=== PATIENT | male | born 1990 | race Caucasian/White ===

== ENCOUNTER 2025-01-20 03:26 | Emergency (ER) | payer OTHER, SELFPAY ==
[2025-01-20 03:27] VITALS: BP 147/73; PULSE 102; RESP 19; TEMP 37.2; BMI 25.2
[2025-01-20 03:31] VITALS: BP 150/88; PULSE 102; RESP 20; TEMP 37.2; O2SAT 93
--- NOTE | 2025-01-20 03:53 | RAD_ITS ---
PROCEDURE: CHEST 1 VIEW (PORTABLE) 01/20/2025 REASON FOR EXAM: COUGH TECHNIQUE: Frontal view of the chest. COMPARISON: None available FINDINGS: The lungs appear clear. Pulmonary vascularity appears within limits. No pleural effusion. The cardiac and mediastinal contours appear within limits. The visualized osseous structures appear within limits. RAD/Chest 1 View (Portable) IMPRESSION: No evidence of acute disease. Reading Location: [id number]
[2025-01-20 04:11] LABS: Absolute Lymphocyte Count 0.84 X10^3/uL (0.83-4.51); Absolute Neutrophil Count 7.5 X10^3/uL (2.0-7.7); Basophil# 0.05 X10^3/uL; Basophil% 0.6 % (0-1); Eosinophil# 0.01 X10^3/uL; Eosinophils% 0.1 % (0-5); Hematocrit 41.2 % (40-54); Hemoglobin 15.1 g/dL (13.0-16.5); Lymphocyte # 0.84 X10^3/ul (0.83-4.51); Lymphocyte % 9.5 % (19-41); Mean Corp Hgb Conc 36.7 g/dL (32-36); Mean Corpuscular Hgb 28.4 pg (27.0-32.0); Mean Corpuscular Volume 77.4 fL (80-94); Mean Platelet Vol. 9.3 fl (6.2-12.0); Monocyte# 0.48 X10^3/uL; Monocyte% 5.4 % (0-10); NRBC Flagged by Analyzer 0 % (0-5); Neutrophil # 7.45 X10^3/uL (2.7-7.7); Neutrophil % 83.8 % (47-70); POSITIVE MORPHOLOGY YES; Platelet Count 172 K/mm3 (150-450); RBC Distribution Width CV 12.4 % (11.6-14.6); RBC Distribution Width SD 34.8 fl (35.1-43.9); Red Blood Count 5.32 M/mm3 (4.6-6.2); White Blood Count 8.9 K/mm3 (4.4-11.0)
[2025-01-20 04:13] LABS: Differential Indicated SCAN CRITERIA MET
[2025-01-20] MEDS: 0.9% Normal Saline (1000mL) 1,000 ML 999 ML IV (04:14)
[2025-01-20 04:30] VITALS: BP 121/76; PULSE 86; RESP 20; TEMP 37.2; O2SAT 95
[2025-01-20 04:47] LABS: Magnesium 2.2 mg/dL (1.5-2.2)
[2025-01-20 04:55] LABS: Atypical Lymphocyte 1+ %
[2025-01-20 04:56] LABS: Platelet Estimate ADEQUATE (ADEQ); Red Cell Morphology NORM C+C NORMAL (NORM C&C)
[2025-01-20 05:00] VITALS: BP 141/80; PULSE 86; RESP 18; TEMP 37.1; O2SAT 93
[2025-01-20 05:08] LABS: AST(SGOT) 134 U/L (<=37); Alanine Aminotransfer ALT/SGPT 238 U/L (<=46); Alkaline Phosphatase 125 U/L (40-129); Anion Gap 13 (5-15); BUN 14 mg/dL (4-19); BUN/Creat Ratio 12.3 RATIO (10-20); Bilirubin, Direct 0.42 mg/dL (0.00-0.30); Calcium,Total 8.6 mg/dL (7.6-11.0); Carbon Dioxide 24.7 mmol/L (21.0-32.0); Chloride 93 mmol/L (98-108); Creatinine, Serum 1.11 mg/dL (0.70-1.20); EST Glomerular Filtration Rate 90 (>60); Estimated Creatinine Clearance 89.32 ml/min (50-250); Glucose 123 mg/dL (70-99); Potassium 3.6 mmol/L (3.3-5.1); Sodium Level 131 mmol/L (133-145); Total Bilirubin 0.86 mg/dL (0.00-1.30)
--- NOTE | 2025-01-20 05:28 | EX.ED.DYSGE1 ---
HPI History of Present Illness Chief Complaint: Rash Informant: patient and family Narrative Narrative: Patient is a 34-year-old male who reports a past medical history of Lyme's disease otherwise states he is healthy and takes no medication. He reports that there is been a measles outbreak in his community. He reports his son initially had the infection and then began to spread it throughout the house. Patient states that he has had symptoms of fever muscle aches rash cough and sore throat for approximately 1 week. He states that he is coughing at night keeping him from sleeping and he also feels a burning sensation when he swallows. He states that he believes his cough and shortness of breath are worsening despite the timeframe of the infection and therefore comes in for evaluation He does state that since the measles outbreak has been running through his community that the community is already in contact with the health department for continued monitoring [facility] Medical History (Updated 01/20/25 @ 06:[address] Aramis Downing, DO) Hx of Lyme disease Home Medications ?Medication ?Instructions ?Recorded ?Last Taken ?Type aluminum-mag hydroxide-simethicone 5 ml PO 4X/DAY PRN 01/20/25 Unknown Rx 200 mg-200 mg-20 mg/5 mL oral susp dyspepsia/indigestion #3,000 mL (Maalox Advanced) benzonatate 200 mg capsule 200 mg PO TID PRN cough #30 caps 01/20/25 Unknown Rx Allergy/AdvReac Type Severity Reaction Status Date / Time No Known Allergies Allergy Verified 01/20/25 03:27 Social History Smoking Status: Never smoker [facility] ED Constitutional Constitutional ED: Reports chills and fever(s) Eyes Eyes: Denies change in vision ENT ENT ED: Reports rhinorrhea and sore throat Cardiovascular Cardiovascular: Denies chest pain Respiratory/Chest Respiratory/Chest: Reports cough and dyspnea Gastrointestinal Gastrointestinal: Reports nausea and other Details: Positive dyspepsia ; Denies abdominal pain, diarrhea or vomiting Genitourinary Genitourinary ED: Denies dysuria Musculoskeletal Musculoskeletal: Reports myalgias Integumentary Reports rash Neurologic Neurologic: Denies headache(s) Hematologic/Lymphatic Hematologic/Lymphatic: Denies easy bleeding or easy bruising Allergic/Immunologic Allergic/Immunologic ED: Denies mouth swelling or tongue swelling EXAM Physical Exam Const Vital Signs: 01/20/25 03:27 01/20/25 03:31 01/20/25 03:31 Temperature 98.9 F 98.9 F Temperature Source Oral Oral Pulse Rate 102 H 102 H Respiratory Rate 19 H 20 H Respiratory Effort Non-Labored Short of Breath Respiratory Pattern Tachypnea Blood Pressure 147/73 H 150/88 H Blood Pressure Mean 97 108 Pulse Ox 93 Oxygen Delivery Method Room Air Room Air 01/20/25 04:30 01/20/25 05:00 01/20/25 05:38 Temperature 98.9 F 98.7 F 98.9 F Temperature Source Oral Oral Pulse Rate 86 86 86 Respiratory Rate 20 H 18 18 Respiratory Effort Respiratory Pattern Blood Pressure 121/76 H 141/80 H 116/98 H Blood Pressure Mean 91 100 104 Pulse Ox 95 93 95 Oxygen Delivery Method Room Air Room Air 01/20/25 06:00 Temperature Temperature Source Pulse Rate 90 Respiratory Rate 18 Respiratory Effort Respiratory Pattern Blood Pressure 122/75 H Blood Pressure Mean 90 Pulse Ox 94 Oxygen Delivery Method Room Air Positive well nourished and well developed General Appearance ED: well developed HEENT Reports dry mucous membranes HEENT Narrative: Normocephalic atraumatic No tongue or lip swelling; no airway edema or compromise Mucous membranes are dry and tacky There are white discolorations across the bilateral cheeks and posterior pharynx consistent with [place] spots; no abscess formation noted Mouth ED: Yes dry mucous membranes Mouth: dry mucous membranes Eyes PERRL and EOMs intact bilaterally Eyes Narrative: Bilateral scleral injection is noted General Eye ED: Negative for scleral icterus Neck supple and no JVD Neck Narrative: No nuchal rigidity or meningeal signs Resp normal respiratory effort and clear to auscultation bilaterally Resp Narrative: Breath sounds are slightly diminished throughout but overall clear to auscultation without nasal flaring retractions stridor or accessory muscle use Cardio regular rhythm Rate: tachycardic and other Other Details: Slightly tachycardic rate with regular rhythm No murmurs rubs or gallop Radial and carotid pulses equal and symmetric GI non-tender, non-distended and no masses GI Narrative: Soft nontender nondistended with hyperactive bowel sounds No voluntary guarding or rigidity or pulsatile mass Auscultation: hyperactive bowel sounds Palpation: soft Extremity normal to inspection Extremity Narrative: No asymmetric edema no pitting edema negative Homans' sign bilaterally Neuro oriented x3, CN's II-XII intact bilaterally and no sensory deficits noted Sensorium / Orientation: alert Motor Exam: strength 5/5 throughout Psych Mood & Affect: anxious Skin No skin turgor normal Skin Narrative: Skin turgor is increased consistent with dehydration There is an erythematous rash extending from the head/face down into the chest abdomen and back and extending into the arms and upper legs without palm or sole involvement also consistent with history of measles No desquamation or sloughing of skin MDM MDM MDM Narrative Medical decision making narrative: Patient arrived to the ER slightly tachycardic but otherwise in no acute distress satting in the mid 90s on room air. He reports a known exposure to measles and is currently following with the health department. However with him reporting worsening cough and shortness of breath there is concern for superimposed pneumonia or secondary bacterial infection leading to worsening of symptoms. Therefore chest x-ray was obtained as well as basic labs. Chest x-ray revealed no acute infiltrate pneumothorax or pleural effusion. Lab work showed no leukocytosis or left shift. It did show lymphocytosis and relative thrombocytopenia consistent with measles. It also displayed mild elevation to the transaminase values consistent with measles infection. The patient however did not have signs of acute kidney injury or clinically significant electrolyte abnormality. After receiving IV hydration a GI cocktail and Tessalon Perles the patient did have improvement of his symptoms and reported feeling better and his vital stabilized. He has not been hypoxic or requiring supplemental oxygen or showing signs of respiratory distress. As there is no signs of superimposed bacterial infection or measles encephalitis I do not feel there is need for further workup or admission to the hospital. Patient will provide symptomatic care and can continue to follow-up with the health department and his family doctor for further evaluation. History & Record Review Discussion w/independent historian: Patient and Family Lab Data Attestation: I reviewed the patient's lab results. Labs: Laboratory Results - last 24 hr 01/20/25 03:40 WBC 8.9 RBC 5.32 Hgb 15.1 Hct 41.2 MCV 77.4 L MCH 28.4 MCHC 36.7 H RDW Std Deviation 34.8 L RDW Coeff of Frandy 12.4 Plt Count 172 MPV 9.3 Immature Gran % (Auto) 0.600 Neut % (Auto) 83.8 H Lymph % (Auto) 9.5 L Pender % (Auto) 5.4 Eos % (Auto) 0.1 Baso % (Auto) 0.6 Absolute Neuts (auto) 7.5 Absolute Lymphs (auto) 0.84 Nucleated RBC % 0 Atypical Lymphocytes 1+ Platelet Estimate ADEQUATE RBC Morphology NORM C+C Sodium 131 L Potassium 3.6 Chloride 93 L Carbon Dioxide 24.7 Anion Gap 13 BUN 14 Creatinine 1.11 Estim Creat Clear Calc 89.32 Est GFR (MDRD) Non-Af 90 BUN/Creatinine Ratio 12.3 Glucose 123 H Calcium 8.6 Magnesium 2.2 Total Bilirubin 0.86 Direct Bilirubin 0.42 H AST 134 H ALT 238 H Alkaline Phosphatase 125 Total Protein 8.0 Albumin 4.0 Globulin 4.0 Rubella IgG Antibody Nonreactive Radiography Diagnostic Testing: Clinical Impression(s) from Imaging Studies Chest X-Ray 01/20/25 03:53 IMPRESSION: No evidence of acute disease. Reading Location: [facility] Chest x-ray as interpreted by the emergency medicine physician reveals no acute infiltrate pneumothorax or pleural effusion Discharge Plan Triage Chief Complaint: Rash ED Provider: Aramis Downing Dx/Rx/DC Orders Clinical Impression: Measles, Dyspnea, Mild dehydration Instructions: ED Measles ([place]) Prescriptions: New benzonatate 200 mg capsule 200 mg PO TID PRN (Reason: cough) Qty: 30 0RF alum-mag hydroxide-simeth [Maalox Advanced] 200-200-20 mg/5 mL suspension 5 ml PO 4X/DAY PRN (Reason: dyspepsia/indigestion) Qty: 3000 0RF Primary Care Provider: Aleksandr Miller Referrals: Aleksandr Miller PA-C [Primary Care Provider] - Activity Restrictions/Additional Instructions: Your workup today did not reveal any secondary superimposed infection on top of the measles such as pneumonia. Take the prescribed medication as directed to help with symptoms and continue to follow-up with your family doctor as well as the Department of Health for monitoring. Return to the ER should you have any further concerns Print Language: Nigerien Disposition Disposition: Home, Self Care Discharge Date/Time: 01/20/25 06:28
[2025-01-20] MEDS: Lidocaine 2% Viscous15 ML UDC 15 ML PO (05:37)
[2025-01-20] MEDS: Benzonatate 100 MG Capsule 200 MG PO (05:37)
[2025-01-20] MEDS: Albuterol Sulfate 8 gm Inhaler (60 puffs) 2 PUFF INHALATION (05:37)
[2025-01-20] MEDS: Mag Hydrox/Al Hydrox/Simeth 30 ML UDC PO (05:37)
[2025-01-20 05:38] VITALS: BP 116/98; PULSE 86; RESP 18; TEMP 37.2; O2SAT 95
[2025-01-20 05:47] LABS: Rubella IgG Nonreactive (Nonreactive)
[2025-01-20 06:00] VITALS: BP 122/75; PULSE 90; RESP 18; O2SAT 94
== END 2025-01-20 06:28 | disposition home or self-care (01) ==
PROVIDERS: Emergency Provider Emergency Medicine; PCP Physician Assistant; Visit Provider Emergency Medicine
DX: B05.9 Measles without complication (principal); R06.00 Dyspnea, unspecified
CPT/HCPCS: 71045; 80048; 80076; 83735; 85025; 86762; 86765; 96360; 99285